=== PATIENT | female | born 1945 | race Caucasian/White ===

== ENCOUNTER 2018-02-22 05:48 | Inpatient (IN) | payer MEDICARE ==
--- NOTE | 2018-02-13 14:37 | ANES ---
Anesthesia Pre Procedure Eval HOME MEDICATIONS aspirin 81 mg tablet,delayed release 81 mg PO DAILY 01/14/18 [Last Taken Unknown] calcium carbonate 500 mg (1,250 mg)-vitamin D3 200 unit tablet 1 tab PO DAILY 01/14/18 [Last Taken Unknown] omega-3 fatty acids 1,000 mg capsule 1,000 mg PO DAILY 01/14/18 [Last Taken Unknown] naproxen sodium 220 mg tablet 220 mg PO BID 01/31/18 [Last Taken Unknown] pediatric multivitamin chewable tablet 1 tab PO DAILY 01/31/18 [Last Taken Unknown] Cod Liver Oil 120 ml PO DAILY 02/13/18 [Last Taken Unknown] walker 1 misc .ROUTE .MEDSUPPLY 02/13/18 [Last Taken Unknown] Allergies/Adverse Reactions: Allergies Allergy/AdvReac Type Severity Reaction Status Date / Time No Known Allergies Allergy Verified 02/13/18 12:19 - Planned Procedure Planned Procedure: Left Total Hip Arthroplasty Medication List Reviewed:: Yes Allergies Verified: Yes Medical History (Last Updated 01/31/18 @ 14:51 by Leeann Lopez RN) Arthritis Onset Date: Unknown Dizziness Onset Date: Unknown Headache Onset Date: Unknown stem cell injection Onset Date: ~10/2016 left hip. [place], [place]. Dr Alvarado, again in 12/2016 Surgical History (Last Updated 01/31/18 @ 14:51 by Leeann Lopez RN) History of back surgery Onset Date: 1984 herniated disc History of dilatation and curettage Onset Date: Unknown Status post lateral meniscus repair Onset Date: ~[address] Rojas at [facility] Family History (Last Updated 02/13/18 @ 12:35 by Marcela Blackmon) Father Heart disease Alzheimers disease Mother Breast cancer Diabetes type 2, controlled Sister Breast cancer - Family Anesthesia History Family History:: no untoward family reactions to anesthesia, no familial bleeding tendencies, no family history of clotting disorders, no family history of premature - Airway/Neck/Teeth Within Normal Limits:: Yes Teeth Condition: Intact Mallampatti Score: 2 Thyromental (T-M) distance: > 6 cm Mandibulo Hyoid distance: > 3 cm - Respiratory Smoking Status: Never smoker Discussed smoking cessation including day of surgery: No Sleep Apnea currently treated: No Sleep Apnea by current assessment: No Discussed Risks/Treatment of LAM: No - Cardiovascular Tolerates Activity: Fair Heart Sounds: S1 & S2, Regular - Anesthesia Assessment and Plan ASA Class: PS, II Anesthesia Type Plan: Spinal
[2018-02-22] MEDS ORDERED: MORPHINE SULFATE 15 MG TABLET.SA PO PRN (06:00)
[2018-02-22] MEDS ORDERED: ROPIVACAINE HCL/PF 100 MG, EPINEPHrine 0.2 MG, KETOROLAC TROMETHAMINE 30 MG in NORMAL S... IJ PRN (06:00)
[2018-02-22] MEDS ORDERED: ceFAZolin SODIUM 1 GM VIAL IV PRN (06:00)
[2018-02-22] MEDS ORDERED: TRANEXAMIC ACID 1,000 MG in NORMAL SALINE 100 ML IV PRN (06:00)
--- NOTE | 2018-02-22 07:25 | ANES ---
Anesthesia Pre Procedure Eval Vitals/Labs: Last Vital Signs Temp 36.7 C 02/22/18 06:30 Pulse 77 02/22/18 06:30 Resp 18 02/22/18 06:30 BP 161/66 H 02/22/18 06:30 Pulse Ox 98 02/22/18 06:30 HOME MEDICATIONS aspirin 81 mg tablet,delayed release 81 mg PO DAILY 01/14/18 [Last Taken 02/15/18] calcium carbonate 500 mg (1,250 mg)-vitamin D3 200 unit tablet 1 tab PO DAILY 01/14/18 [Last Taken 02/21/18] naproxen sodium 220 mg tablet 220 mg PO BID 01/31/18 [Last Taken 02/15/18] Cod Liver Oil 120 ml PO DAILY 02/13/18 [Last Taken 02/21/18] walker 1 misc .ROUTE .MEDSUPPLY 02/13/18 [Last Taken Unknown] Allergies/Adverse Reactions: Allergies Allergy/AdvReac Type Severity Reaction Status Date / Time No Known Allergies Allergy Verified 02/13/18 12:19 - Planned Procedure Planned Procedure: Left Total Hip Arthroplasty Medication List Reviewed:: Yes Allergies Verified: Yes Medical History (Last Reviewed 02/22/18 @ 07:24 by Noel Valentin CRNA) Hard of hearing Impaired mobility due to left hip Non-tobacco user Right knee pain Ruptured lumbar disc Seldom use of alcohol Use of cane as ambulatory aid PRN Wears dentures full upper Wears glasses Wears hearing aid in both ears right eye does not focus Arthritis Onset Date: Unknown Dizziness Onset Date: Unknown Headache Onset Date: Unknown stem cell injection Onset Date: ~10/2016 left hip. [place], [place]. Dr Alvarado, again in 12/2016 Surgical History (Last Reviewed 02/22/18 @ 07:24 by Noel Valentin CRNA) History of stem cell transplant L hip History of back surgery Onset Date: 1984 herniated disc History of dilatation and curettage Onset Date: Unknown Status post lateral meniscus repair Onset Date: ~[address] Rojas at [facility] Family History (Last Reviewed 02/22/18 @ 07:24 by Noel Valentin CRNA) Father Alzheimers disease Heart disease Mother Breast cancer Diabetes type 2, controlled Cataract Sister Breast cancer Sister Arthritis Sister Alive and well Sister Alive and well Sister Alive and well Brother Arthritis Brother Arthritis Curvature of spine Daughter Alive and well Daughter Alive and well - Family Anesthesia History Family History:: no untoward family reactions to anesthesia, no familial bleeding tendencies, no family history of clotting disorders, no family history of premature - Airway/Neck/Teeth Within Normal Limits:: Yes Teeth Condition: Intact Mallampatti Score: 2 Thyromental (T-M) distance: > 6 cm Mandibulo Hyoid distance: > 3 cm - Respiratory Respiratory: lungs clear Smoking Status: Never smoker Discussed smoking cessation including day of surgery: No Sleep Apnea currently treated: No Sleep Apnea by current assessment: No Discussed Risks/Treatment of LAM: No - Cardiovascular Tolerates Activity: Fair Heart Sounds: S1 & S2, Regular - Anesthesia Assessment and Plan ASA Class: PS, II Anesthesia Type Plan: Spinal
[2018-02-22] MEDS: RINGER'S SOLUTION,LACTATED 1,000 ML IV PRN ×2 (07:27→08:53)
[2018-02-22] MEDS ORDERED: MORPHINE SULFATE 2 MG/ML DISP.SYRIN IV PRN (09:44)
[2018-02-22] MEDS ORDERED: MAGNESIUM HYDROXIDE 30 ML UDC PO PRN (09:44)
[2018-02-22] MEDS ORDERED: MAG HYDROX/ALUMINUM HYD/SIMETH 30 ML UDC PO PRN (09:44)
[2018-02-22] MEDS ORDERED: HYDROcodone/ACETAMINOPHEN 1 EACH TABLET PO PRN (09:44)
[2018-02-22] MEDS ORDERED: ONDANSETRON HCL/PF 2 MG/ML VIAL IV PRN (09:44)
[2018-02-22] MEDS ORDERED: ACETAMINOPHEN 500 MG TABLET PO PRN (09:44)
[2018-02-22] MEDS ORDERED: ZOLPIDEM TARTRATE 5 MG TABLET PO PRN (09:44)
[2018-02-22] MEDS ORDERED: diphenhydrAMINE HCL 50 MG/ML VIAL IV PRN (09:44)
--- NOTE | 2018-02-22 09:44 | OR ---
Operative Report - Dictated Report Narrative: Date: 02/22/2018 Preoperative diagnosis: Left hip avascular necrosis. Postoperative diagnosis: Left hip avascular necrosis. Procedure: Left Total hip arthroplasty. Surgeon: Dayton Hawkins M.D. Concrete Rod Buster: David Peña PA-C (provided and educated skilled set of hands but assisted with positioning, prepping, draping, retraction, manipulation, irrigation, suturing, dressings, and transportation all of which cannot be performed by the available surgical crew) Anesthesia: Spinal and local periarticular joint injection. Complications: None Specimens: Bone for disposal. Estimated blood loss: 100 milliliters. Retained implants: Depuy [place] size 6 femoral stem standard offset. Size 54 millimeter outside diameter 3-hole Raymond Gription acetabular cup. 54 millimeter outside by 36 millimeter inside diameter highly cross-linked acetabular liner. 36 millimeter diameter +1.5 millimeter cobalt chromium femoral head. Cancellous 6.5mm screw 35 millimeter length Indications: Mrs. Zuñiga is a 72-year-old female who developed avascular necrosis of her left hip with significant pain. This patient was followed in my clinic for period of time with significant complaints of left hip pain consistent with arthritic changes. She failed conservative measures including but not limited to activity modification, passage of time, medications, and other conservative measures. Patient wished to proceed with surgical treatment. The risks, benefits, and alternatives were discussed in clinic. The risks of , blood clots, bleeding, infection, nerve/tendon blood vessel/ injury, malposition of components, dislocation and/or instability of joint, intraoperat aren fracture, postoperative limited range of motion, persistent pain, failure of components, and need for additional procedures. Patient wished to proceed. Consent was obtained after answering all questions. Procedure: After marking the correct extremity on the floor, the patient was taken to the operating room. A timeout was performed. IV antibiotics consisting of Ancef were administered prior to the procedure. A spinal anesthetic was induced by anesthesia. A Mclaughlin catheter was inserted. The patient was then transitioned to a lateral position on a well-padded pegboard. An axillary roll was placed. The head was in neutral position. The non- operative down leg was well-padded with SCD and SHARI hose in place. The arms were supported and padded to protect from any undue pressure on the bony prominences and nerves. A well-padded anterior and posterior pelvic and chest posts were secured in order to maintain a stable position of the pelvis. This was placed so that the pelvis was perpendicular to the floor. The body was in line with the pelvis. Once it was felt that we had protected all the bony prominences and the patient was well secured with a safety belt as well, the leg was pre-scrubbed with alcohol, prepped and draped in a standard sterile fashion. A standard anterior lateral hip incision was marked out over the greater trochanter. Ioban drapes were then placed. The skin incision was then made. Sharp dissection with a scalpel utilizing cautery for hemostasis was carried out down to the gluteus and iliotibial band fascia. This was split in line with the skin incision. The greater trochanter bursa was excised. The anterior and posterior margins of the abductor tendon were identified. The anterior 1/2-1/3 of the tendon was tagged and reflected off the greater trochanter leaving a sleeve of tendon for repair at the completion of the case. This exposed the underlying hip joint capsule. A limb length stitch was placed in the skin and referencedd off a elliott on the greater trochanter for evaluation of intraoperative limb lengths. An inverted T-type capsulotomy was made extending this up to the brim of the acetabulum. Using Homans to assist with elevation of the soft tissues off the anterior, superior, and inferior aspects of the femoral neck, the hip was then placed in a figure 4 position and the femoral head was dislocated. With the leg in an externally rotated and adducted position, the cutting flag was utilized in order to elliott for a standard femoral neck cut approximately a fingerbreadth above the level of the lesser trochanter. This was done with reference to pre-operative films and overall alignment. This was done while protecting the surrounding soft tissues with Homans. The femoral head was then removed and sized for guidance on preparation of the acetabulum. It was noted that there was loss of articular cartilage on both the femoral head and weightbearing portions of the acetabulum. We then returned the leg to the table and turned our attention to the acetabulum. While protecting the surrounding soft tissues, the labrum and remaining tissue in the fovea were excised using a scalpel and cautery. A series of reamers up to size 54 millimeter were utilized to prepare the acetabulum. The final reamer had good purchase and exposed the bleeding subchondral bone. The acetabulum was then thoroughly irrigated ensuring that all bony and cartilaginous materials were removed, and the final acetabular shell was impacted into place. This was placed in approximately 45 degrees of abduction and 20 degrees of anteversion utilizing the outrigger and body axis for alignment. This had a good press fit. 1 6.5mm cancellous screw was placed in the superior posterior quadrant of the acetabulum. The shell was then thoroughly irrigated and the final polyethylene was impacted into place ensuring that it seated completely. This was then protected with a sponge while we returned our attention to the femur. With the leg in a figure 4 position, utilizing Homans for soft tissue protection, a box cutting osteotome, followed by Charnley awl, followed by serial reamers and broaches were utilized in order to prepare the femur. It was found that a size 6 broach gave good axial and rotational stability. The calcar reamer was utilized in order to clean up the cut edges. The proximal femur was visualized to ensure that there were no signs of fracture. A series of heads and necks were trialed. It was found that a standard offset neck and a + 1.5 femoral head gave good overall stability. There was minimal longitudinal instability. With the leg in the position of sleep, the femoral head was well covered. Hip range of motion was able to reach full extension and external rotation to greater than 75 degrees prior to impingement along the posterior acetabulum. The hip was able to be flexed to greater than 90 degrees with internal rotation greater than 60 degrees prior to anterior impingement. The li mb lengths were near equal based on comparison to the contralateral side and the prior placed limb length stitch. At this point it was felt these were the appropriately sized femoral components as well as neck and femoral head. The trial implants were removed. The femur was thoroughly irrigated. The final implants were impacted into place, and the hip was reduced. After ensuring that there was no damage to the proximal femur, the standard periarticular joint injection of ropivacaine, Toradol, and epinephrine were injected into the joint capsule and surrounding soft tissues. Anesthesia then administered intravenous tranexamic acid. The capsule was repaired with a single interrupted #1 Vicryl. The abductor tendon was repaired to the greater trochanter utilizing #5 Ethibond through drill holes. This was oversewn with #1 Vicryl. The fascia was closed with interrupted #1 Vicryl. The wounds were thoroughly irrigated as we closed in layers. The deep and subcutaneous fat layers were closed with 0 and 3-0 Vicryl respectively. The subcutaneous tissue was closed with a running 3-0 Vicryl and the skin with jasper. All sponge, needle, blade, and instrument counts were correct prior to closing the wounds. Sterile dressings consisting of Xeroform, 4 x 4's, and tape were applied. The patient was awoken and transferred to her hospital bed and then to the postanesthesia care unit in stable condition. Postoperative condition: The plan is to admit to the medical/surgical inpatient floor postoperatively. There will be a projected 1 to 3 day hospital stay. Postoperatively 24 hours of IV antibiotics, pain control, physical therapy, occupational therapy, and medical comanagement will be utilized. Patient will be weightbearing as tolerated with anterior hip precautions. Postoperative films will be obtained in the recovery room.
--- NOTE | 2018-02-22 09:51 | ANES ---
Post Anesthesia Discharge - Transfer of Care Transfer of Care handoff given to nurse: Yes - Discharge from PACU Discharge from PACU when meets criteria: Yes - Discharge to ASU Discharge to ASU-no complications/pt stable: Yes
[2018-02-22] MEDS: DEXTROSE 5%-LACTATED RINGERS 1,000 ML IV PRN ×2 (11:24→21:06)
[2018-02-22] MEDS: KETOROLAC TROMETHAMINE 15 MG/ML VIAL IV SCH ×3 (11:26→22:51)
--- NOTE | 2018-02-22 11:43 | ANES ---
Post Anesthesia Assessment - Vital Signs Vitals: Last Vital Signs Temp 36.1 C 02/22/18 10:10 Pulse 67 02/22/18 11:06 Resp 16 02/22/18 11:06 BP 143/61 02/22/18 11:06 Pulse Ox 98 02/22/18 11:06 Airway Patency: Normal - Mental Status Level Of Consciousness: Awake - Pain Level Pain Score: 0 - N/V Assessment Nausea/Vomiting Presence: None Dehydration:: No
[2018-02-22] MEDS: ceFAZolin SODIUM 1 GM in DEXTROSE 5 % IN WATER 100 ML IV SCH ×6 (11:49→22:50)
[2018-02-22] MEDS ORDERED: SENNOSIDES/DOCUSATE SODIUM 1 TAB TABLET PO SCH (21:00)
[2018-02-22] MEDS: MORPHINE SULFATE 15 MG TABLET.SA PO SCH (21:14)
[2018-02-23] MEDS: KETOROLAC TROMETHAMINE 15 MG/ML VIAL IV SCH ×2 (05:24→09:56)
[2018-02-23 06:14] LABS: Hematocrit 36.6 % (37.0-47.0); Hemoglobin 11.6 gm/dL (12.5-16.0); Mean Cell Volume 87.4 fl (78-100); Mean Corpuscular Hemoglobin 27.7 pg (27-31); Mean Corpuscular Hgb Conc 31.7 g/dl (32-36); Platelet Count 219 K/mm3 (150-450); Red Blood Count 4.19 M/mm3 (4.2-5.4); Red Cell Distribution Width 14.1 % (11.5-14.0); White Blood Count 7.5 K/mm3 (4.0-10.5)
[2018-02-23 06:22] LABS: Anion Gap 7.7 mmol/L (6.8-13.8); BUN/Creatinine Ratio 11.7 (9.0-21.6); Calcium * 8.1 mg/dL (7.9-10.9); Carbon Dioxide 28.3 mmol/L (24-32.6); Estimated Creat Clear 58.5
[2018-02-23] MEDS ORDERED: ENOXAPARIN SODIUM 40 MG/0.4 ML SYRG SC SCH (08:45)
[2018-02-23] MEDS ORDERED: CALCIUM CARBONATE/VITAMIN D3 1 TAB TABLET PO SCH (09:00)
[2018-02-23] MEDS: MORPHINE SULFATE 15 MG TABLET.SA PO SCH (09:55)
--- NOTE | 2018-02-23 11:07 | DS ---
(1) S/P total hip arthroplasty Problem: Acute Qualifiers: Laterality: left Qualified Code(s): Z96.642 - Presence of left artificial hip joint (2) Acute blood loss anemia Problem: Acute (3) Avascular necrosis of bone of hip Problem: Chronic Qualifiers: Laterality: left Description of Stay: Mrs. Zuñiga was admitted to the floor after undergoing left total hip arthroplasty. Tolerated this well. Was admitted to the floor postoperatively for 24 hours of IV antibiotics, pain control, medical comanagement, and occupational and physical therapy. OT and PT were consulted to assist with activities of daily living and ambulation. Was made weightbearing as tolerated with anterior hip precautions and no active abduction. Pain was initially co ntrolled with IV regimen. This was transitioned to oral once tolerating a by mouth intake. Was resumed on home diet and medications. Had a Mclaughlin catheter inserted and the operating room which was discontinued on postoperative day 1. Lovenox SCD and SHARI hose were utilized for DVT prophylaxis. Vital signs remained stable to the hospital course. Serial labs were obtained which showed a final hemoglobin of 11.6 grams. BMP was reviewed and was stable. Physical examination throughout the hospital course showed an extremity that had sensation that was intact to light touch, palpable pulses, a benign wound, motor intact to the toes, ankle, and knee. Once an oral pain regimen was tolerated and physical therapy goals were met, it was felt that they were stable for discharge to home. She will be going home with home health. The need for home health is to the fact that she is homebound due to limited mobility, difficulty leaving the home, limited access to transportation, risk of damaging her joint. The need for physical therapy is to assist with mobility, postoperative recovery after total knee arthroplasty, resuming home activities, assist with pain relief, improved motion, and regain strength. The need for home health care skilled services is directly related to the time spent [id number] with Keri. Instructions: Continue with weightbearing as tolerated and anterior hip precautions with no active abduction. Do not bathe or soak the wound. If there is any drainage from the wound keep the wound clean and dry and cover with dry gauze and tape. Change every 2-3 days as needed if there is any drainage. Cover wound while showering. Continue with physical therapy. Resume home diet. Report any fever over 101.5 Fahrenheit, uncontrolled pain, increased drainage, foul odor of drainage, new or increased calf pain or shortness of breath, or any other significant complaints. A 325mg dialy aspirin will be started after finishing anticoagulation if not allergic. Continue with SHARI hose on the operative extremity until instructed otherwise. No driving until instructed otherwise. Follow up in approximately 10-14 days. Procedures Performed: see notes below List Procedures: Left total hip arthroplasty Results and Findings: Lab Pending Results 02/23/18 06:10: WBC 7.5, RBC 4.19 L, Hgb 11.6 L, Hct 36.6 L, MCV 87.4, MCH 27.7, MCHC 31.7 L, RDW 14.1 H, Plt Count 219, MPV 10.0 02/23/18 06:10: Sodium 138, Plasma Sodium 138, Potassium 4.0, Chloride 106, Carbon Dioxide 28.3, Anion Gap 7.7, BUN 9, Creatinine 0.77, Est GFR (Non-Af Amer) 78, BUN/Creatinine Ratio 11.7, Random Glucose 116 H, Calcium 8.1 Discharge Location: Home Disposition: Home Health Service Condition: Good Face to Face Encounter completed per [facility] Guidelines: Yes Discharge Activity: Weight bearing, Other - anterior hip precautions with no active abduction Discharge Diet: General/regular food Additional Patient Instructions (free text): [facility], please call [phone] and fax discharge information to [phone]. PT and OT to evaluate and treat with home health. Follow up Orthopedic appt. on March 07 at 10:00am. Prescriptions (Any new or edited meds): Enoxaparin Sodium [Lovenox] 40 mg SC Q24H #7 disp.syrin HYDROcodone/ACETAMINOPHEN [[place] 5-325] 2 ea PO Q4H PRN #60 tab PRN Reason: Moderate Pain (Pain Scale 4-6) Morphine Sulfate [Ms Contin] 15 mg PO Q12H #10 tablet.sa Sennosides/Docusate Sodium [Senokot-S] 2 tab PO HS #60 tablet Complete Home Medications List: Complete Home Medication List: aspirin 81 mg tablet,delayed release 81 mg PO DAILY 01/14/18 calcium carbonate 500 mg (1,250 mg)-vitamin D3 200 unit tablet 1 tab PO DAILY 01/14/18 Cod Liver Oil 120 ml PO DAILY 02/13/18 walker 1 misc .ROUTE .MEDSUPPLY 02/13/18 Enoxaparin Sodium [Lovenox] 40 mg SC Q24H #7 disp.syrin 02/23/18 HYDROcodone/ACETAMINOPHEN [[place] 5-325] 2 ea PO Q4H PRN #60 tab 02/23/18 Morphine Sulfate [Ms Contin] 15 mg PO Q12H #10 tablet.sa 02/23/18 Sennosides/Docusate Sodium [Senokot-S] 2 tab PO HS #60 tablet 02/23/18
[2018-02-23 13:43] VITALS: BP 152/71
== END 2018-02-23 13:30 | disposition home health service (06) | DRG 470 ==
LOC: MS 05:48
PROVIDERS: ADMIT Orthopaedic Surgery; ATTEND Orthopaedic Surgery
CPT/HCPCS: 36415; 73502; 80048; 85027; 97116; 97161; 97166